=== PATIENT | male | born 1940 | race Caucasian/White ===

== ENCOUNTER 2023-01-10 09:33 | Outpatient (CLI) | payer MEDICARE ==
[2023-01-10 14:48] LABS: CHOL/HDL RATIO 4.5 (<5.0); CHOLESTEROL 125 mg/dL; HDL CHOLESTEROL 28 mg/dL; LDL CHOLESTEROL,CALCULATED 60 mg/dL; LDL/HDL RATIO 2.1 (<3.6); TRIGLYCERIDES 187 mg/dL (48-352); VLDL CHOLESTEROL 37 mg/dL
== END 2023-01-10 09:34 | disposition home or self-care (01) ==
LOC: LAB.S 09:33
PROVIDERS: ATTEND Internal Medicine Interventional Cardiology
DX: E78.5 Hyperlipidemia, unspecified (principal)
CPT/HCPCS: 36415; 80061; 83721